=== PATIENT | female | born 1995 | race Two or more races ===

== ENCOUNTER 2024-06-27 15:13 | Emergency (ER) | payer SELFPAY | END 2024-06-27 18:36 | disposition home or self-care (01) | LOC: MW.ED 15:13 | DX: S93.402A Sprain of unspecified ligament of left ankle, initial encounter (principal); Z75.8 Other problems related to medical facilities and other health care; X50.1XXA Overexertion from prolonged static or awkward postures, initial encounter | CPT/HCPCS: 73610-26-LT; 73610-LT; 99283 ==